=== PATIENT | male | born 1990 | race Two or more races ===

== ENCOUNTER 2017-05-09 16:29 | Emergency (ER) | payer MEDICAID ==
[~2017-05-09] VITALS: Ht 172.7 cm; Wt 79.4 kg
[2017-05-09 16:41] VITALS: BP 142/78
[2017-05-09] MEDS ORDERED: LIDOCAINE 1% INJ 50 ML MDV IJ ONE (17:02)
== END 2017-05-09 17:52 | disposition home or self-care (01) ==
LOC: ER 16:39
DX: L02.31 Cutaneous abscess of buttock (principal); L03.317 Cellulitis of buttock; F17.200 Nicotine dependence, unspecified, uncomplicated
CPT/HCPCS: A4606; A6407; J3490; Z7610